=== PATIENT | female | born 1975 | race Hispanic/Latino ===

== ENCOUNTER → 2017-12-06 | Outpatient (CLI) | payer MEDICARE ==
[~2017-12-06] MED LIST: CARV25TA PO; HYDR-4153 PO; PREG75 PO; SEVE800T7 PO; TRAM50TA4 PO
== END | disposition home or self-care (01) ==
LOC: DTH 12:56
PROVIDERS: ATTEND Surgery
DX: E66.01 Morbid (severe) obesity due to excess calories (principal); I10 Essential (primary) hypertension; E11.9 Type 2 diabetes mellitus without complications; Z79.4 Long term (current) use of insulin
CPT/HCPCS: 97802

== ENCOUNTER 2020-08-23 09:12 | Emergency (ER) | payer MEDICARE ==
[~2020-08-23 09:12] MED LIST changes: +CINA30 PO; -PREG75 PO; -SEVE800T7 PO; -TRAM50TA4 PO
[2020-08-23 11:27] LABS: POTASSIUM 4.9 mmol/L (3.5-5.1)
[2020-08-23 11:31] LABS: BASOPHILS % (AUTO) 1.4 % (0.0-5.0); CREATININE 10.9 mg/dL (0.5-1.5); EOSINOPHILS % (AUTO) 3.8 % (0.0-8.0); LYMPHOCYTES % (AUTO) 21.9 % (21.0-51.0); MEAN CORPUSCULAR HEMOGLOBIN 34.4 pg (27.0-33.0); MEAN CORPUSCULAR HGB CONC 32.9 g/dL (32.0-36.0); MEAN CORPUSCULAR VOLUME 104.3 fL (79-99); MONOCYTES % (AUTO) 10.1 % (3.0-13.0); NEUTROPHILS % (AUTO) 62.5 % (40.0-77.0); PLATELET COUNT (AUTO) 83 K/uL (130-400); RED BLOOD CELL COUNT(AUTO) 3.26 MIL/uL (4.00-5.50); RED CELL DISTRIBUTION WIDTH 14.6 % (11.0-15.5); WHITE BLOOD COUNT (AUTO) 3.7 K/uL (4.8-10.8)
== END 2020-08-23 13:27 | disposition left against medical advice (07) ==
LOC: EDH 09:12
DX: M79.601 Pain in right arm (principal); I12.0 Hypertensive chronic kidney disease with stage 5 chronic kidney disease or end stage renal disease; E11.22 Type 2 diabetes mellitus with diabetic chronic kidney disease; N18.6 End stage renal disease; Z90.710 Acquired absence of both cervix and uterus; Z88.6 Allergy status to analgesic agent; Z88.8 Allergy status to other drugs, medicaments and biological substances; Z99.2 Dependence on renal dialysis; Z90.49 Acquired absence of other specified parts of digestive tract
CPT/HCPCS: 36415; 80048; 85025

== ENCOUNTER 2020-09-11 19:43 | Observation (INO) | payer MEDICARE ==
[~2020-09-11] VITALS: Ht 167.6 cm; Wt 88.5 kg
[2020-09-11 20:32] LABS: EOSINOPHILS % (AUTO) 3.4 % (0.0-8.0); HEMATOCRIT 29.4 % (36-48); LYMPHOCYTES % (AUTO) 16.5 % (21.0-51.0); MEAN CORPUSCULAR HEMOGLOBIN 34.2 pg (27.0-33.0); MEAN CORPUSCULAR HGB CONC 32.7 g/dL (32.0-36.0); MEAN CORPUSCULAR VOLUME 104.6 fL (79-99); MONOCYTES % (AUTO) 12.3 % (3.0-13.0); NEUTROPHILS % (AUTO) 66.8 % (40.0-77.0); PLATELET COUNT (AUTO) 71 K/uL (130-400); RED BLOOD CELL COUNT(AUTO) 2.81 MIL/uL (4.00-5.50); RED CELL DISTRIBUTION WIDTH 13.8 % (11.0-15.5); WHITE BLOOD COUNT (AUTO) 3.8 K/uL (4.8-10.8)
[2020-09-11 20:55] LABS: INR 1.18 (0.85-1.15); PROTHROMBIN TIME 12.7 SEC (9.6-11.6)
[2020-09-11 21:02] LABS: B-TYPE NATRIURETIC PEPTIDE 2320 pg/mL (0-100)
[2020-09-11 21:11] LABS: ALBUMIN 3.8 g/dL (3.5-5.0); BILIRUBIN,TOTAL 0.6 mg/dL (0.2-1.0); POTASSIUM 4.5 mmol/L (3.5-5.1); TOTAL PROTEIN, SERUM 8.5 g/dL (6.0-8.3)
[2020-09-11 21:12] LABS: CREATININE 11.8 mg/dL (0.5-1.5)
[2020-09-12] MEDS ORDERED: DEXTROSE 50%-WATER 50 ML DISP.SYRIN IV PRN (00:15)
[2020-09-12] MEDS ORDERED: GLUCAGON 1MG KIT 1 MG ML IM PRN (00:15)
[2020-09-12] MEDS ORDERED: NITROGLYCERIN 1GM/1 INCH PACKET TD ONE (01:50)
[2020-09-12 02:05] VITALS: BP 155/70
[2020-09-12] MEDS ORDERED: GABA-529 PO (02:17)
[2020-09-12] MEDS ORDERED: AMLO-257 PO ×2 (02:17)
[2020-09-12] MEDS ORDERED: CALC667C10 PO (02:21)
[2020-09-12 06:42] LABS: HEMATOCRIT 27.1 % (36-48); MEAN CORPUSCULAR HEMOGLOBIN 33.3 pg (27.0-33.0); MEAN CORPUSCULAR HGB CONC 32.8 g/dL (32.0-36.0); MEAN CORPUSCULAR VOLUME 101.5 fL (79-99); PLATELET COUNT (AUTO) 66 K/uL (130-400); RED BLOOD CELL COUNT(AUTO) 2.67 MIL/uL (4.00-5.50); RED CELL DISTRIBUTION WIDTH 13.9 % (11.0-15.5); WHITE BLOOD COUNT (AUTO) 3.5 K/uL (4.8-10.8)
[2020-09-12 06:54] LABS: POTASSIUM 4.7 mmol/L (3.5-5.1)
[2020-09-12] MEDS: NITROGLYCERIN 1GM/1 INCH PACKET TD SCH ×4 (06:57→18:53)
[2020-09-12 06:58] LABS: CREATININE 12.2 mg/dL (0.5-1.5)
[2020-09-12] MEDS: INSULIN R PO SS1 SQ SCH ×4 (06:58→21:00)
[2020-09-12 07:47] VITALS: BP 145/73
[2020-09-12] MEDS: CALCIUM ACETATE 667 MG CAPSULE PO SCH ×3 (09:04→18:52)
[2020-09-12] MEDS: AMLODIPINE BESYLATE 5 MG TAB PO SCH ×2 (09:04→20:29)
[2020-09-12] MEDS: GABAPENTIN 100 MG CAPSULE PO SCH (09:04)
[2020-09-12] MEDS: HYDRALAZINE HCL 25 MG TABLET PO SCH ×2 (09:04→20:28)
[2020-09-12 11:11] VITALS: BP 172/95
[2020-09-12] MEDS: DiphenhydrAMINE HCL 50 MG/ML VIAL IVP PRN (14:42)
[2020-09-12 15:48] VITALS: BP 144/64
[2020-09-12 20:56] VITALS: BP 110/74
[2020-09-13] VITALS (7 sets, daily range): BP systolic 127–182; BP diastolic 59–85
[2020-09-13 05:24] LABS: HEMATOCRIT 28.7 % (36-48); MEAN CORPUSCULAR HEMOGLOBIN 33.9 pg (27.0-33.0); MEAN CORPUSCULAR HGB CONC 33.1 g/dL (32.0-36.0); MEAN CORPUSCULAR VOLUME 102.5 fL (79-99); PLATELET COUNT (AUTO) 70 K/uL (130-400); RED CELL DISTRIBUTION WIDTH 13.6 % (11.0-15.5); WHITE BLOOD COUNT (AUTO) 3.6 K/uL (4.8-10.8)
[2020-09-13 05:37] LABS: POTASSIUM 4.8 mmol/L (3.5-5.1)
[2020-09-13 05:39] LABS: CREATININE 13.3 mg/dL (0.5-1.5)
[2020-09-13 06:01] LABS: EOSINOPHILS % (MANUAL) 1 % (1-6); LYMPHOCYTES % (MANUAL) 27 % (22-44); MAN.DIFF COMMENT-IMPRESSION MANUAL DIFFERENTIAL; MONOCYTES % (MANUAL) 10 % (2-9); PLATELET MORPHOLOGY COMMENT DECREASED; REACTIVE LYMPHOCYTES 3 % (0-0); SEGMENTED NEUTROPHILS % 59 % (40-70)
[2020-09-13] MEDS: INSULIN R PO SS1 SQ SCH ×4 (06:25→21:00)
[2020-09-13] MEDS: NITROGLYCERIN 1GM/1 INCH PACKET TD SCH ×4 (06:43→17:48)
[2020-09-13] MEDS: CALCIUM ACETATE 667 MG CAPSULE PO SCH ×3 (08:00→17:08)
[2020-09-13] MEDS: HYDRALAZINE HCL 25 MG TABLET PO SCH ×2 (09:00→20:17)
[2020-09-13] MEDS: AMLODIPINE BESYLATE 5 MG TAB PO SCH ×3 (09:00→20:17)
[2020-09-13] MEDS: GABAPENTIN 100 MG CAPSULE PO SCH (12:26)
[2020-09-13] MEDS: DiphenhydrAMINE HCL 50 MG/ML VIAL IVP PRN ×3 (12:27→22:25)
[2020-09-13] MEDS ORDERED: SODIUM CHLORIDE 0.9% 1000ML 1,000 ML IV PRN (14:45)
[2020-09-13] MEDS ORDERED: LIDOCAINE HCL-MPF 1% 2ML VIAL IJ PRN (14:45)
[2020-09-13] MEDS ORDERED: HEPARIN SODIUM 5000UNIT/ML 1ML VIAL IJ PRN (14:45)
[2020-09-13] MEDS ORDERED: 0.9% SODIUM CHLORIDE 1000 ML IV BAG IV PRN (14:45)
[2020-09-13] MEDS ORDERED: NITROGLYCERIN 0.4 MG SL TAB SL PRN (14:45)
[2020-09-13] MEDS ORDERED: DiphenhydrAMINE HCL 50 MG/ML VIAL IV ONE (15:30)
[2020-09-14] MEDS: NITROGLYCERIN 1GM/1 INCH PACKET TD SCH ×3 (00:08→12:00)
[2020-09-14 00:48] VITALS: BP 163/75
[2020-09-14 02:58] VITALS: BP 155/77
[2020-09-14 05:49] LABS: HEMATOCRIT 28.6 % (36-48); MEAN CORPUSCULAR HEMOGLOBIN 33.1 pg (27.0-33.0); MEAN CORPUSCULAR HGB CONC 32.2 g/dL (32.0-36.0); MEAN CORPUSCULAR VOLUME 102.9 fL (79-99); RED BLOOD CELL COUNT(AUTO) 2.78 MIL/uL (4.00-5.50); RED CELL DISTRIBUTION WIDTH 13.6 % (11.0-15.5); WHITE BLOOD COUNT (AUTO) 3.7 K/uL (4.8-10.8)
[2020-09-14 06:09] LABS: POTASSIUM 4.1 mmol/L (3.5-5.1)
[2020-09-14 06:20] LABS: CREATININE 9.7 mg/dL (0.5-1.5)
[2020-09-14] MEDS: INSULIN R PO SS1 SQ SCH (06:21)
[2020-09-14 08:00] VITALS: BP 170/77
[2020-09-14] MEDS: CALCIUM ACETATE 667 MG CAPSULE PO SCH ×3 (08:00→16:23)
[2020-09-14] MEDS: AMLODIPINE BESYLATE 5 MG TAB PO SCH (09:00)
[2020-09-14] MEDS: HYDRALAZINE HCL 25 MG TABLET PO SCH (09:00)
[2020-09-14] MEDS: DiphenhydrAMINE HCL 50 MG/ML VIAL IVP PRN (09:48)
[2020-09-14] MEDS: GABAPENTIN 100 MG CAPSULE PO SCH (09:48)
[2020-09-14 11:37] VITALS: BP 173/78
[2020-09-14 12:12] LABS: HEPATITIS Bs ANTIGEN SCREEN P Negative (Negative)
[2020-09-14] MEDS ORDERED: HEPARIN SODIUM 5000UNIT/ML 1ML VIAL IJ PRN ×2 (13:45)
[2020-09-14] MEDS ORDERED: 0.9% SODIUM CHLORIDE 1000 ML IV BAG IV PRN (13:45)
[2020-09-14] MEDS ORDERED: NITROGLYCERIN 0.4 MG SL TAB SL PRN (13:45)
[2020-09-14] MEDS ORDERED: SODIUM CHLORIDE 0.9% 1000ML 1,000 ML IV PRN (13:45)
[2020-09-14] MEDS ORDERED: LIDOCAINE HCL-MPF 1% 2ML VIAL IJ PRN (14:00)
[2020-09-14] MEDS ORDERED: ALBUMIN FOR BP SUPPORT MISC PRN (14:00)
[2020-09-14] MEDS ORDERED: ACETAMINOPHEN 325 MG TAB PO PRN (14:00)
[2020-09-14 16:00] VITALS: BP 179/75
== END 2020-09-14 17:05 | disposition home or self-care (01) ==
LOC: EDH 19:43 → EDHIP 22:12 → 3DH 09-12 01:40
PROVIDERS: ADMIT Internal Medicine Critical Care Medicine; ATTEND Internal Medicine Critical Care Medicine
DX: I12.0 Hypertensive chronic kidney disease with stage 5 chronic kidney disease or end stage renal disease (principal); E11.22 Type 2 diabetes mellitus with diabetic chronic kidney disease; N18.6 End stage renal disease; D63.1 Anemia in chronic kidney disease; Z20.822 Contact with and (suspected) exposure to COVID-19; R06.02 Shortness of breath; E78.5 Hyperlipidemia, unspecified; E87.70 Fluid overload, unspecified; D69.6 Thrombocytopenia, unspecified; R20.2 Paresthesia of skin; E66.9 Obesity, unspecified; Z99.2 Dependence on renal dialysis; Z94.0 Kidney transplant status; Z90.49 Acquired absence of other specified parts of digestive tract; Z91.15 Patient's noncompliance with renal dialysis; Z79.899 Other long term (current) drug therapy; Z88.1 Allergy status to other antibiotic agents; Z88.6 Allergy status to analgesic agent; Z88.8 Allergy status to other drugs, medicaments and biological substances; Z68.31 Body mass index [BMI] 31.0-31.9, adult
CPT/HCPCS: 36415 ×4; 71045; 80048 ×3; 80053; 82948 ×11; 83880; 84484 ×2; 85025 ×2; 85027 ×2; 85610; 85730; 86704; 86706; 87040 ×2; 87340; 87426; 87520; 93005; 96374; 96376 ×2; 99285; G0378 ×61; J1200 ×6; J1644 ×2; U0003; 90935

== ENCOUNTER 2021-05-19 16:55 | Inpatient (IN) | payer MEDICARE ==
[~2021-05-19] VITALS: Ht 170.2 cm; Wt 95.8 kg
[2021-05-19] VITALS (11 sets, daily range): BP systolic 156–192; BP diastolic 75–86
[~2021-05-19 16:55] MED LIST changes: +AMLO-257 PO; +CALC667C10 PO; -CARV25TA PO; -CINA30 PO; +GABA-529 PO
[2021-05-19 17:26] LABS: EOSINOPHILS % (AUTO) 2.3 % (0.0-8.0); HEMATOCRIT 31.2 % (36-48); LYMPHOCYTES % (AUTO) 15.7 % (21.0-51.0); MEAN CORPUSCULAR HGB CONC 32.1 g/dL (32.0-36.0); MONOCYTES % (AUTO) 10.9 % (3.0-13.0); NEUTROPHILS % (AUTO) 69.8 % (40.0-77.0); PLATELET COUNT (AUTO) 55 K/uL (130-400); RED BLOOD CELL COUNT(AUTO) 3.03 MIL/uL (4.00-5.50); RED CELL DISTRIBUTION WIDTH 14.2 % (11.0-15.5)
[2021-05-19 17:42] LABS: ALBUMIN 3.5 g/dL (3.5-5.0); BILIRUBIN,TOTAL 0.5 mg/dL (0.2-1.0); CRP QUANTITATIVE 6.8 mg/L (0.00-9.0); POTASSIUM 5.5 mmol/L (3.5-5.1); TOTAL PROTEIN, SERUM 8.9 g/dL (6.0-8.3)
[2021-05-19 17:45] LABS: CREATININE 14.9 mg/dL (0.5-1.5); INR 1.17 (0.85-1.15); PROTHROMBIN TIME 12.6 SEC (9.6-11.6)
[2021-05-19 17:46] LABS: PARTIAL THROMBOPLASTIN TIME 31.2 SEC (26.3-35.5)
[2021-05-19] MEDS ORDERED: ONDANSETRON 4MG TABLET PO PRN (19:00)
[2021-05-19] MEDS ORDERED: ACETAMINOPHEN 325 MG TAB PO PRN (19:00)
[2021-05-19] MEDS: HEPARIN 5,000 UNIT VIAL SQ SCH (21:00)
[2021-05-19] MEDS ORDERED: HEPARIN 5,000 UNIT VIAL IJ PRN (21:00)
[2021-05-19] MEDS ORDERED: 0.9%NACL 1000ML 1,000 ML IV PRN (21:00)
[2021-05-20] VITALS (17 sets, daily range): BP systolic 125–186; BP diastolic 54–88
[2021-05-20] MEDS ORDERED: SERT-438 PO (01:13)
[2021-05-20] MEDS ORDERED: SERTRALINE HCL 50 MG TABLET ONE (01:22)
[2021-05-20] MEDS ORDERED: AMLO-257 PO (01:30)
[2021-05-20] MEDS ORDERED: HYDR-4153 PO (01:32)
[2021-05-20] MEDS ORDERED: GABA-529 PO (01:32)
[2021-05-20] MEDS ORDERED: HYDRALAZINE 25MG TABLET ONE (02:11)
[2021-05-20 08:24] LABS: BASOPHILS % (AUTO) 0.8 % (0.0-5.0); EOSINOPHILS % (AUTO) 2.8 % (0.0-8.0); LYMPHOCYTES % (AUTO) 12.4 % (21.0-51.0); MEAN CORPUSCULAR HEMOGLOBIN 33.1 pg (27.0-33.0); MEAN CORPUSCULAR HGB CONC 32.1 g/dL (32.0-36.0); MEAN CORPUSCULAR VOLUME 103.2 fL (79-99); MONOCYTES % (AUTO) 10.7 % (3.0-13.0); PLATELET COUNT (AUTO) 48 K/uL (130-400); RED BLOOD CELL COUNT(AUTO) 2.81 MIL/uL (4.00-5.50); RED CELL DISTRIBUTION WIDTH 14.1 % (11.0-15.5); WHITE BLOOD COUNT (AUTO) 3.5 K/uL (4.8-10.8)
[2021-05-20] MEDS: HEPARIN 5,000 UNIT VIAL SQ SCH ×2 (09:15→17:15)
[2021-05-20 09:45] LABS: MAGNESIUM 2.9 mg/dL (1.80-2.40); POTASSIUM 5.5 mmol/L (3.5-5.1)
[2021-05-20 09:49] LABS: CREATININE 13.1 mg/dL (0.5-1.5)
[2021-05-20] MEDS ORDERED: CLONIDINE HCL 0.2 MG TABLET PO SCH (12:00)
[2021-05-20] MEDS: DIPHENHYDRAMINE HCL 25 MG CAPSULE PO PRN (23:45)
[2021-05-21] VITALS (7 sets, daily range): BP systolic 126–177; BP diastolic 61–79
[2021-05-21] MEDS: CLONIDINE HCL 0.1 MG TABLET PO PRN ×2 (01:46→11:57)
[2021-05-21] MEDS: HYDRALAZINE 25MG TABLET PO SCH ×2 (08:31→20:45)
[2021-05-21] MEDS: HEPARIN 5,000 UNIT VIAL SQ SCH ×2 (08:36→20:33)
[2021-05-21] MEDS ORDERED: GABAPENTIN 100 MG CAPSULE PO SCH (09:00)
[2021-05-21 09:09] LABS: HEPATITIS Bs ANTIGEN SCREEN P Negative (Negative)
[2021-05-21] MEDS: DIPHENHYDRAMINE HCL 25 MG CAPSULE PO PRN (20:46)
[2021-05-21] MEDS ORDERED: AMLODIPINE 5 MG TAB PO SCH (21:00)
[2021-05-21] MEDS ORDERED: SERTRALINE HCL 50 MG TABLET PO SCH (21:00)
[2021-05-21] MEDS ORDERED: GABAPENTIN 100 MG CAPSULE ONE (21:22)
[2021-05-22] VITALS (7 sets, daily range): BP systolic 135–180; BP diastolic 67–98
[2021-05-22 04:37] LABS: HEMATOCRIT 27.4 % (36-48); MEAN CORPUSCULAR HEMOGLOBIN 33.2 pg (27.0-33.0); MEAN CORPUSCULAR HGB CONC 32.1 g/dL (32.0-36.0); MEAN CORPUSCULAR VOLUME 103.4 fL (79-99); PLATELET COUNT (AUTO) 40 K/uL (130-400); RED BLOOD CELL COUNT(AUTO) 2.65 MIL/uL (4.00-5.50)
[2021-05-22 04:58] LABS: MAGNESIUM 2.6 mg/dL (1.80-2.40)
[2021-05-22 05:20] LABS: EOSINOPHILS % (MANUAL) 3 % (1-6); LYMPHOCYTES % (MANUAL) 26 % (22-44); MAN.DIFF COMMENT-IMPRESSION MANUAL DIFFERENTIAL; MONOCYTES % (MANUAL) 5 % (2-9); PLATELET MORPHOLOGY COMMENT DECREASED; REACTIVE LYMPHOCYTES 1 % (0-0); SEGMENTED NEUTROPHILS % 65 % (40-70)
[2021-05-22] MEDS: HYDRALAZINE 25MG TABLET PO SCH (08:22)
[2021-05-22] MEDS: HEPARIN 5,000 UNIT VIAL SQ SCH (08:24)
[2021-05-22] MEDS: CLONIDINE HCL 0.1 MG TABLET PO PRN (12:06)
[2021-05-22] MEDS ORDERED: GABAPENTIN 100 MG CAPSULE PO SCH ×2 (14:31→21:00)
[2021-05-22] MEDS ORDERED: HYDRALAZINE 20MG/ML VIAL IV SCH (15:50)
[2021-05-22] MEDS ORDERED: HYDRALAZINE 20MG/ML VIAL ONE (16:19)
== END 2021-05-22 18:02 | disposition home or self-care (01) | DRG 304 ==
LOC: EDH 16:55 → EDHIP 18:20 → 3DH 05-20 17:40 → UNDODISIN 05-22 18:02
PROVIDERS: ADMIT Internal Medicine Infectious Disease; ATTEND Internal Medicine Infectious Disease
PROC: 5A1D70Z Performance of Urinary Filtration, Intermittent, Less than 6 Hours Per Day (ICD-10-PCS; principal; 2021-05-20)
PROC: 5A1D70Z Performance of Urinary Filtration, Intermittent, Less than 6 Hours Per Day (ICD-10-PCS; 2021-05-22)
DX: I16.1 Hypertensive emergency (principal); N18.6 End stage renal disease; J81.1 Chronic pulmonary edema; I12.0 Hypertensive chronic kidney disease with stage 5 chronic kidney disease or end stage renal disease; E87.5 Hyperkalemia; E11.22 Type 2 diabetes mellitus with diabetic chronic kidney disease; D63.1 Anemia in chronic kidney disease; D69.6 Thrombocytopenia, unspecified; R53.81 Other malaise; Z99.2 Dependence on renal dialysis; Z91.15 Patient's noncompliance with renal dialysis; Z91.19 Patient's noncompliance with other medical treatment and regimen; Z88.8 Allergy status to other drugs, medicaments and biological substances
CPT/HCPCS: 36415; 71045; 80048; 80053; 82948; 83735; 85025; 85027; 85610; 85730; 86140; 86704; 86706; 87340; 90935; 93005; G0378; J0360; J1644; Q0163

== ENCOUNTER 2021-06-28 15:57 | Emergency (ER) | payer MEDICARE ==
[~2021-06-28] VITALS: Ht 170.2 cm; Wt 89.0 kg
[~2021-06-28 15:57] MED LIST changes: -ALBUMIN (HUMAN) 25% 200 ML IV SCH
[2021-06-28 17:18] LABS: BASOPHILS % (AUTO) 0.9 % (0.0-5.0); EOSINOPHILS % (AUTO) 3.5 % (0.0-8.0); HEMATOCRIT 26.4 % (36-48); LYMPHOCYTES % (AUTO) 18.9 % (21.0-51.0); MEAN CORPUSCULAR HEMOGLOBIN 33.2 pg (27.0-33.0); MEAN CORPUSCULAR VOLUME 100.8 fL (79-99); MONOCYTES % (AUTO) 13.6 % (3.0-13.0); NEUTROPHILS % (AUTO) 62.8 % (40.0-77.0); PLATELET COUNT (AUTO) 70 K/uL (130-400); RED BLOOD CELL COUNT(AUTO) 2.62 MIL/uL (4.00-5.50); RED CELL DISTRIBUTION WIDTH 14.1 % (11.0-15.5); WHITE BLOOD COUNT (AUTO) 3.2 K/uL (4.8-10.8)
[2021-06-28 17:51] LABS: ALBUMIN 3.2 g/dL (3.5-5.0); BILIRUBIN,TOTAL 0.5 mg/dL (0.2-1.0); POTASSIUM 4.4 mmol/L (3.5-5.1); TOTAL PROTEIN, SERUM 7.3 g/dL (6.0-8.3)
[2021-06-28 17:58] LABS: CREATININE 8.6 mg/dL (0.5-1.5)
[2021-06-28 18:30] VITALS: BP 168/75
== END 2021-06-28 20:56 | disposition home or self-care (01) ==
LOC: EDH 15:57
DX: R06.00 Dyspnea, unspecified (principal); I12.0 Hypertensive chronic kidney disease with stage 5 chronic kidney disease or end stage renal disease; E11.22 Type 2 diabetes mellitus with diabetic chronic kidney disease; N18.6 End stage renal disease; Z79.899 Other long term (current) drug therapy; Z20.822 Contact with and (suspected) exposure to COVID-19; Z88.1 Allergy status to other antibiotic agents; Z88.6 Allergy status to analgesic agent; Z94.0 Kidney transplant status; Z99.2 Dependence on renal dialysis; R10.9 Unspecified abdominal pain
CPT/HCPCS: 36415 ×2; 49083; 71045; 74176; 80053; 83690; 84484 ×2; 85025; 85610; 85730; 87071; 87205; 87635; 87804 ×2; 89051; 93005; 99285; C1729; C9803; P9046; 96365

== ENCOUNTER → 2021-06-28 | Outpatient (CLI) | payer MEDICARE ==
[~2021-06-28] MED LIST changes: +ALBUMIN (HUMAN) 25% 200 ML IV SCH; -CALC667C10 PO; +SERT-438 PO
[2021-06-28 10:47] LABS: INR 1.15 (0.85-1.15); PROTHROMBIN TIME 12.4 SEC (9.6-11.6)
[2021-06-28 10:48] LABS: PARTIAL THROMBOPLASTIN TIME 33.9 SEC (26.3-35.5)
[2021-06-28 15:14] LABS: APPEARANCE BODY FLUID SLIGHTLY CLOUDY (CLEAR); COLOR,BODY FLUID YELLOW (LT YELLOW); SPECIMENTYPE,BODY FLUID ASCITES; TOTAL VOLUME,BODY FLUID 9600 mL
[2021-06-28 15:15] LABS: BODY FLUID RBC 62 /cu. mm.; BODY FLUID WBC 160 /cu. mm.
[2021-06-28 15:41] LABS: BF LYMPHOCYTE 72 %
== END | disposition home or self-care (01) ==
LOC: RAH 09:49
PROVIDERS: ATTEND Internal Medicine Nephrology
DX: R18.8 Other ascites (principal); E11.22 Type 2 diabetes mellitus with diabetic chronic kidney disease; N18.6 End stage renal disease; D63.1 Anemia in chronic kidney disease; E78.5 Hyperlipidemia, unspecified; E66.9 Obesity, unspecified; Z99.2 Dependence on renal dialysis; Z88.0 Allergy status to penicillin; Z88.1 Allergy status to other antibiotic agents; Z88.6 Allergy status to analgesic agent; Z68.31 Body mass index [BMI] 31.0-31.9, adult; Z79.01 Long term (current) use of anticoagulants; Z98.890 Other specified postprocedural states
CPT/HCPCS: 36415; 49083; 85610; 85730; 87071; 87205; 89051; C1729; P9046; 96365

== ENCOUNTER → 2021-11-27 | Outpatient (CLI) | payer MEDICARE ==
[~2021-11-27] MED LIST changes: +CLON0.5T4 PO; +FLUO10CA24 PO; +TRIA15CR45 TP
== END | disposition home or self-care (01) ==
LOC: RAH 11:29
PROVIDERS: ATTEND Internal Medicine Nephrology
DX: E04.2 Nontoxic multinodular goiter (principal); E07.9 Disorder of thyroid, unspecified
CPT/HCPCS: 76536

== ENCOUNTER → 2022-04-06 | Outpatient (CLI) | payer MEDICARE ==
[~2022-04-06] MED LIST changes: +ALBUMIN (HUMAN) 25% 200 ML IV SCH
[2022-04-06 11:22] LABS: INR 1.02 (0.85-1.15); PROTHROMBIN TIME 11.1 SEC (9.6-11.6)
[2022-04-06 11:23] LABS: PARTIAL THROMBOPLASTIN TIME 29.2 SEC (26.3-35.5)
[2022-04-06 15:55] LABS: SPECIMENTYPE,BODY FLUID ASCITES
[2022-04-06 15:56] LABS: APPEARANCE BODY FLUID SLIGHTLY CLOUDY (CLEAR)
[2022-04-06 15:59] LABS: COLOR,BODY FLUID DARK YELLOW (LT YELLOW); TOTAL VOLUME,BODY FLUID 12500 mL
[2022-04-06 16:00] LABS: BODY FLUID RBC 1675 /cu. mm.; BODY FLUID WBC 99 /cu. mm.
[2022-04-06 16:48] LABS: BF LYMPHOCYTE 25 %; BF MESOTHELIAL 60 %
== END | disposition home or self-care (01) ==
LOC: RAH 10:02
PROVIDERS: ATTEND Internal Medicine Nephrology
DX: R18.8 Other ascites (principal); I12.0 Hypertensive chronic kidney disease with stage 5 chronic kidney disease or end stage renal disease; E11.22 Type 2 diabetes mellitus with diabetic chronic kidney disease; N18.6 End stage renal disease; E78.5 Hyperlipidemia, unspecified; Z88.8 Allergy status to other drugs, medicaments and biological substances; Z82.3 Family history of stroke; Z80.0 Family history of malignant neoplasm of digestive organs; Z82.0 Family history of epilepsy and other diseases of the nervous system; Z82.49 Family history of ischemic heart disease and other diseases of the circulatory system; Z82.5 Family history of asthma and other chronic lower respiratory diseases; Z79.01 Long term (current) use of anticoagulants; Z79.899 Other long term (current) drug therapy
CPT/HCPCS: 49083; 89051; 85610; 85730; 87071; 87205; 36415; C1729